=== PATIENT | female | born 1970 | race Caucasian/White ===

== ENCOUNTER 2018-07-14 10:19 | Emergency (ER) | payer BC ==
--- NOTE | 2018-07-14 10:32 | PDOC ---
History of Present Illness - General Chief Complaint: Allergic Reaction Stated Complaint: ALLERGIC REACTION Time Seen by Provider: 07/14/18 10:30 History Source: Patient Exam Limitations: No Limitations - History of Present Illness Initial Comments: Pt is a 47 yo F, with PMH of RA and Lupus (frequent pneumonias and pyelonephritis), who is presenting via EMS from [facility] for complaints of "tongue swelling". Pt states she has had clear nasal discharge and cough productive of yellow sputum over the past 3 days. She awoke last night around 3am with "her tongue pushing up against her teeth," but denies any new rash, n/v, sore throat, throat swelling, or difficulty swallowing/ tolerating secretions. Pt went to [facility] this AM, where they gave her epinephrine due to "tongue swelling" and sent her to the ER for further eval. Pt has no current complaints at this time. Pt denies any fevers/chills, headache , vision changes, syncope, chest pain, palpitations, SOB, nausea/vomiting, abdominal pain, urinary symptoms, diarrhea/constipation, or leg swelling. Pt has received her pneumonia vaccine over the past 4 years, and has been able to be off prednisone for a year. Social: Pt denies any cigarette, alcohol, or drug use. Pt denies any recent travel or sick contacts. Surgical: no relevant history. Family: no relevant history. 07/14/18 12:13 Past History - Travel Traveled outside of the country in the last 30 days: No Close contact w/someone who was outside of country & ill: No - Past Medical History Allergies/Adverse Reactions: Allergies Allergy/AdvReac Type Severity Reaction Status Date / Time Penicillins Allergy Mild Itching Verified 07/14/18 10:43 Home Medications: Ambulatory Orders Hydroxychloroquine So4 [Plaquenil -] 600 mg PO DAILY 01/27/15 Butterbur Root Extract [Petadolex 75] 75 mg PO BID 07/14/18 Phenylephrine/Dm/Acetaminop/GG [Mucinex Fast-Max Sev Cold Cplt] 1 each PO DAILY 07/14/18 Prednisone [Deltasone] 60 mg PO DAILY 3 Days #9 tablet 07/14/18 - Surgical History Abdominal Surgery: Yes Appendectomy: Yes - Suicide/Smoking/Psychosocial Hx Smoking History: Never smoked Have you smoked in the past 12 months: No Hx Alcohol Use: No Drug/Substance Use Hx: No Substance Use Type: None Review of Systems - Review of Systems Able to Perform ROS?: Yes Is the patient limited Prydeinig proficient: No Constitutional: Yes: Malaise, Weight Stable. No: Chills, Diaphoresis, Fever, Loss of Appetite, Weakness HEENTM: Yes: See HPI. No: Blurred Vision, Recent change in vision, Nose Pain, Nose Congestion, Throat Pain, Throat Swelling, Mouth Pain, Difficulty Swallowing , Mouth Swelling Respiratory: Yes: Cough, Productive cough. No: Shortness of Breath, Stridor, Wheezing, Hemoptysis Cardiac (ROS): No: Chest Pain, Edema, Irregular Heart Rate, Lightheadedness, Palpitations, Syncope, Chest Tightness ABD/GI: No: Constipated, Diarrhea, Difficulty Swallowing, Nausea, Poor Appetite , Poor Fluid Intake, Vomiting : No: Burning, Dysuria, Pain, Urgency Musculoskeletal: No: Back Pain, Joint Pain, Joint Swelling Integumentary: Yes: Rash (chronic rash 2/2 lupus on L arm, no recent changes). No: Erythema, Flushing, Pruritus Neurological: No: Headache, Numbness, Weakness, Unsteady Gait, Dizziness Psychiatric: No: Sleep Pattern Change, Change in Appetite Endocrine: No: Increased Urine, Change in Weight Hematologic/Lymphatic: No: Anemia, Blood Clots, Easy Bleeding, Easy Bruising All Other Systems: Reviewed and Negative *Physical Exam - Physical Exam Comments: Vitals stable, pt afebrile. Pt in NAD, normal body habitus. PE showed pt alert and oriented. honing machine operator tool generally intact, muscular strength and sensation intact. Eyes PERRLA, EOMI. Oropharynx without erythema or exudates, no tongue swelling, pt handling secretions, no LAD b/l. No nasal congestion, hearing intact. Clear heart sounds, S1/S2, no JVD, b/l pedal edema, or heart murmur. Diminished lungs sounds over posterior R base, no respiratory distress, wheezes, crackles, or accessory muscle use. No abdominal or CVA tenderness to palpation, no rebound, no guarding. Abdomen soft, non-distended, and with normoactive bowel sounds. Flat erythematous rash over L arm (chronic with lupus), clearly demarcated boundaries. No wheals or hives noted. 07/14/18 16:43 ED Treatment Course - LABORATORY CBC & Chemistry Diagram: 07/14/18 11:10 07/14/18 11:10 Medical Decision Making - Medical Decision Making Pt was seen at bedside, also will be seen by attending Dr. Servin. Pt presenting via EMS from [facility] for complaints of "tongue swelling". Pt states she has had clear nasal discharge and cough productive of yellow sputum over the past 3 days. She awoke last night around 3am with "her tongue pushing up against her teeth," but denies any new rash, n/v, sore throat, throat swelling, or difficulty swallowing/tolerating secretions. Pt went to [facility] this AM, where they gave her epinephrine due to "tongue swelling" and sent her to the ER for further eval. Pt has no current complaints at this time. Pt denies any fevers/chills, headache, vision changes, syncope, chest pain, palpitations, SOB , nausea/vomiting, abdominal pain, urinary symptoms, diarrhea/constipation, or leg swelling. Vitals stable, pt afebrile. Pt in NAD, normal body habitus. PE showed pt alert and oriented. honing machine operator tool generally intact, muscular strength and sensation intact. Eyes PERRLA, EOMI. Oropharynx without erythema or exudates, no tongue swelling, pt handling secretions, no LAD b/l. No nasal congestion, hearing intact. Clear heart sounds, S1/S2, no JVD, b/l pedal edema, or heart murmur. Diminished lungs sounds over posterior R base, no respiratory distress, wheezes, crackles, or accessory muscle use. No abdominal or CVA tenderness to palpation, no rebound, no guarding. Abdomen soft, non-distended, and with normoactive bowel sounds. Flat erythematous rash over L arm (chronic with lupus), clearly demarcated boundaries. No wheals or hives noted. Considering viral URI vs influenza vs strep pharyngitis vs pneumonia. Unlikely allergic reaction as pt had no throat swelling, no skin changes/rash, pruritis, nausea/vomiting. Ordered work-up including CBC, CMP, serum , rapid influenza and strep pharyngitis, chest x-ray -- pt has had frequent pneumonia and pyelonephritis, diminished breath sounds R lung base No interventions required at this time, no further throat/tongue swelling, no wheezing, no fever. Will continue to reassess pt and monitor for symptomatic improvement. 07/14/18 11:13 07/14/18 12:05 CBC and CMP WNL Rapid influenza and strep negative. Pending serum for chest x-ray. 07/14/18 12:27 test negative. Chest x-ray shows no acute pathology. Considering normal lab results and imaging, pt can be discharged to home with follow-up. Pt advised to follow-up with PCP in 1-2 days and has been referred to ENT (Dr. Rodriguez). Strict return precautions provided with pt understanding. Sending prednisone burst to pt pharmacy. 07/14/18 13:35 07/14/18 16:41 *DC/Admit/Observation/Transfer Diagnosis at time of Disposition: URI (upper respiratory infection) Qualifiers: URI type: unspecified URI Qualified Code(s): J06.9 - Acute upper respiratory infection, unspecified - Discharge Dispostion Disposition: HOME Condition at time of disposition: Good Decision to Admit order: No - Prescriptions Prescriptions: Prednisone [Deltasone] 60 mg PO DAILY 3 Days #9 tablet - Referrals Referrals: Linda Aguilar [Primary Care Provider] - - Patient Instructions Printed Discharge Instructions: DI for Viral Upper Respiratory Infection -- Adult, DI for Eye Allergic Reaction Additional Instructions: You were seen in the ER today for tongues swelling and upper respiratory symptoms. The results of your labs and imaging today were normal. Please follow- up with your primary care doctor and ENT (Dr. Rodriguez) within 1-2 days to discuss your visit and make sure your symptoms have improved. Please return to the ER if you have any worsening pain, development of fevers or chills, loss of consciousness, inability to tolerate food or fluids, or any other concerns. I have sent prednisone to your pharmacy. Please take this as prescribed (60 mg per day for 3 days). - Post Discharge Activity
[2018-07-14 11:17] LABS: BASO % 0.9 % (0-2.0); EOS % 2.2 % (0-4.5); HEMATOCRIT 40.3 % (32.4-45.2); LYMPH % 15.7 % (8-40); MCH 31.5 pg (25.7-33.7); MCHC 34.8 g/dl (32.0-36.0); MEAN CELL VOLUME 90.6 fl (80-96); MEAN PLT VOLUME 7.9 fl (7.5-11.1); MONO % 6.1 % (3.8-10.2); NEUT % 75.1 % (42.8-82.8); PLATELET COUNT 289 K/MM3 (134-434); RBC 4.45 M/mm3 (3.60-5.2); RDW 12.8 % (11.6-15.6); WHITE BLOOD COUNT 6.8 K/mm3 (4.0-10.0)
--- NOTE | 2018-07-14 11:31 | PDOC ---
Attending Attestation - Resident Resident Name: Angy Covarrubias - ED Attending Attestation I have performed the following: I have examined & evaluated the patient, The case was reviewed & discussed with the resident, I agree w/resident's findings & plan, Exceptions are as noted - HPI HPI: 07/14/18 11:28 47 F with h/o lupus presents to ED with tongue swelling. Pt reports that she has been having URI-like symptoms for 3 days, including cough productive of yellowish sputum and nasal congestion. This morning, at around 3am, pt awoke with swelling to her tongue. Denies any voice hoarseness, difficulty swallowing , difficulty breathing. Denies rash or itching. Pt states that she last ate several hours prior and had frozen pizza that she has eaten several times before. Pt is taking only plaquenil, no new meds. 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 Pt went to urgent care this morning, where she was given IM epi and solumedrol. She reports her symptoms have improved. Denies any complaints currently. Denies swelling to lip or tongue. - Physicial Exam PE: 07/14/18 11:31 "GENERAL: Awake, alert, and fully oriented, in no acute distress. HEAD: No signs of trauma EYES: PERRLA, EOMI, sclera anicteric, conjunctiva clear ENT: Auricles normal inspection, hearing grossly normal, nares patent, oropharynx clear without exudates. Moist mucosa NECK: Nontender, no stepoffs, Normal ROM, supple, no lymphadenopathy, JVD, or masses LUNGS: Breath sounds equal, clear to auscultation bilaterally. No wheezes, and no crackles HEART: Regular rate and rhythm, normal S1 and S2, no murmurs, rubs or gallops ABDOMEN: Soft, nontender, normoactive bowel sounds. No guarding, no rebound. No masses EXTREMITIES: Normal range of motion, no edema. No clubbing or cyanosis. No cords, erythema, or tenderness NEUROLOGICAL: Cranial nerves II through XII intact. 5/5 strength and sensation in all extremities, Normal speech, normal gait, normal cerebellar function SKIN: Warm, Dry, normal turgor, no rashes or lesions noted. - Medical Decision Making 07/14/18 11:31 47 F with 3 days of nasal congestion and cough, and 1 day of tongue swelling. Etiology of tongue swelling is unclear at this time. Possible allergic reaction , though pt denies any potential triggers. At time of evaluation in ED, pt exhibiting no signs of allergic reaction. Pt's other symptoms seem consistent with viral URI. Will obtain CXR to r/o PNA. - CXR - Observe in ED for recurrent swelling 07/14/18 13:35 CXR clear Pt reassessed - continues to feel well without any recurrence of her symptoms. Denies tongue or lip swelling. Denies SOB. Pt is well appearing, with normal vitals. Clinically stable for DC at this time. I discussed the physical exam findings, ancillary test results and final diagnoses with the patient. I answered all of the patient's questions. The patient was satisfied with the care received and felt comfortable with the discharge plan and treatment plan. The patient agrees to follow up with the primary care physician within 24-72 hours.
[2018-07-14 11:46] VITALS: TEMP 98.5; BMI 30.9
[2018-07-14 11:51] LABS: ALBUMIN 3.8 g/dl (3.4-5.0); ALK PHOS 78 U/L (45-117); ANION GAP 8 MMOL/L (8-16); BILIRUBIN,TOTAL 0.5 mg/dL (0.2-1); BLOOD UREA NITROGEN 15 mg/dL (7-18); CHLORIDE 106 mmol/L (98-107); CO2 25 mmol/L (21-32); CREATININE 0.7 mg/dL (0.55-1.3); GLUCOSE,RANDOM 126 mg/dL (74-106); POTASSIUM 3.8 mmol/L (3.5-5.1); SGOT/AST 19 U/L (15-37); SGPT/ALT 28 U/L (13-61); SODIUM 139 mmol/L (136-145); TOT PROT 7.1 g/dl (6.4-8.2)
[2018-07-14 13:45] VITALS: BP 118/77; PULSE 71
== END 2018-07-14 14:05 | disposition home or self-care (01) ==
LOC: JER 10:19
DX: J06.9 Acute upper respiratory infection, unspecified (principal)
CPT/HCPCS: 36415; 71046-TC-FY; 80053; 84703; 85025; 87070; 87804; 87880; 99284-25